=== PATIENT | male | born 1980 | race Two or more races ===

== ENCOUNTER 2024-11-08 10:44 | Emergency (ER) | payer MEDICAID, SELFPAY ==
[2024-11-08 10:45] VITALS: BMI 40.6
[2024-11-08 11:03] VITALS: BP 148/95; PULSE 107; RESP 22; TEMP 37.1; O2SAT 95; BMI 43.9
--- NOTE | 2024-11-08 11:06 | XR_ITS ---
Examination: CT brain head without contrast. 2-D sagittal coronal reconstructions Date and time of exam:November 08, 2024 1113 hours INDICATIONS: High blood pressure with headaches dizziness today CTDI: vol (mGy):57 DLP: (mGycm):1247 Technique: Multiple CT axial sections of the brain have been obtained, 5 mm slice thickness. Contrast has not been administered. 2-D sagittal, coronal reconstructions have been obtained Low dose protocols were performed. One or more of the following dose reduction techniques were used; automated exposure control, adjustment of the mA and/or KV according to patient size, use of iterative reconstruction technique. Findings: No significant ventricular enlargement. Intra-axial or extra-axial hemorrhage density is not seen. No mass effect or midline shift Basal cisterns are not remarkable. Fourth ventricle is midline. Cranial vault intact. Significant chronic pansinusitis, most severe ethmoid and maxillary antral air cells Impression: Negative for acute hemorrhage, mass effect or midline shift Advise clinical correlation follow-up accordingly
--- NOTE | 2024-11-08 11:06 | EKG_ITS ---
[facility] Test Date: 2024-11-08 Pat Name: SAMANTHA SCHRADER Department: Room: - Gender: Male [employer]: : 1980 Requested By: Morales Davis (AMY) Order Number: [id number] Reading MD: Morales Davis (AMY) Measurements Intervals [place] Rate: 102 P: 42 RI: 149 QRS: 61 QRSD: 98 T: 32 QT: 336 QTc: 440 Interpretive Statements SINUS TACHYCARDIA ABNORMAL RHYTHM ECG Compared to ECG 06/06/2023 19:52:41 No significant changes /store/S0/[id number].pdf
--- NOTE | 2024-11-08 11:06 | XR_ITS ---
Examination: PA lateral chest 2 views TECHNIQUE: Upright PA lateral chest 2 views Exam date and time: November 08, 2024 1135 hours Comparison June 06, 2023 INDICATIONS: Chest pain shortness of breath beginning today. FINDINGS: Subtle opacity in the perihilar basilar regions Normal heart size Reduced inspiratory effort Moderate osteopenia IMPRESSION: Subtle interstitial parenchymal disease, differential would include pulmonary fibrosis Consider elective high resolution CT chest without contrast follow-up
--- NOTE | 2024-11-08 11:07 | PD.EDRME ---
Rapid Medical Screening Exam RME Arrival date/time: 11/08/24 10:44 44-year-old male presents the emergency department today for complaints of headache, dizziness, hypertension Chief Complaint: General Adult/Misc Complain Vital signs: Vital Signs Temperature 98.8 F 11/08/24 11:03 Pulse Rate 107 H 11/08/24 11:03 Respiratory Rate 22 H 11/08/24 11:03 Blood Pressure 148/95 H 11/08/24 11:03 Pulse Oximetry (%) 95 11/08/24 11:03 Oxygen Delivery Method Room Air 11/08/24 11:03
[2024-11-08 11:36] LABS: Basophils # (Auto) 0.1 Thou/mm3 (0.0-0.2); Basophils % (Auto) 1 % (0-2.5); Eosinophils # (Auto) 0.4 Thou/mm3 (0.0-0.5); Eosinophils % (Auto) 5 % (0-10); Hematocrit 43.9 % (41.0-53.0); Hemoglobin 14.8 g/dL (13.5-16.0); Immature Granulocytes % (Auto) 0 % (0-0); Immature Granulocytes Auto 0.04 Thou/mm3 (0.00-0.00); Lymphocytes # (Auto) 2.3 Thou/mm3 (1.0-4.8); Lymphocytes % (Auto) 26 % (10-50); Mean Corpuscular HGB Conc 33.7 g/dl (31.0-37.0); Mean Corpuscular Hemoglobin 29.6 pg (25.0-35.0); Mean Corpuscular Volume 88 fL (80-100); Monocytes # (Auto) 0.7 Thou/mm3 (0.0-0.8); Monocytes % (Auto) 8 % (0-12); Neutrophils # (Auto) 5.5 Thou/mm3 (1.8-7.7); Neutrophils % (Auto) 61 % (37-80); Nucleated Red Blood Cell % 0 /100 WBC (0); Platelet Count 347 Thou/mm3 (140-440); RDW Standard Deviation 43.8 fL (35.1-43.9); White Blood Count 9.1 Thou/mm3 (3.8-10.6)
[2024-11-08 11:58] LABS: Alanine Aminotransferase 175 U/L (10-49); Albumin, Serum 4.9 gm/dL (3.5-5.0); Albumin/Globulin Ratio 1.7 (1.2-2.2); Alkaline Phosphatase 113 U/L (46-116); Anion Gap 11 (7-16); Aspartate Amino Transferase 154 U/L (0-34); BUN/Creatinine Ratio 7 Ratio (12-20); Bilirubin,Total 1.1 mg/dL (0.3-1.2); Blood Urea Nitrogen 8 mg/dL (9-23); Calcium 9.6 mg/dL (8.3-10.6); Calcium (Corrected) 9.6 mg/dL (8.5-10.1); Carbon Dioxide 25.5 mMol/L (20.0-31.0); Chloride 105 mMol/L (98-107); Creatinine (Component) 1.1 mg/dL (0.6-1.3); Globulin 2.9 gm/dL (2.3-3.5); Glucose 123 mg/dL (74-106); Osmolality,Calculated 280 (275-295); Sodium 141 mMol/L (136-145); Total Protein 7.8 gm/dL (5.7-8.2); Troponin I < 0.002 ng/mL (0.0-0.045); eGFR > 60 See Note
[2024-11-08 12:03] LABS: B-Type Natriuretic Peptide < 20 pg/mL (0-100)
[2024-11-08 12:56] LABS: Amphetamine/Methamp Scrn,U Negative (Negative); Barbiturate Screen,Urine Negative (Negative); Benzodiazepines Screen,Urine Negative (Negative); Benzoylecgonine Screen, Ur Negative (Negative); Fentanyl Screen,Urine Negative (Negative); Opiate Screen,Urine Negative (Negative); THC Screen,Urine Negative (Negative)
--- NOTE | 2024-11-08 15:12 | PD.EDADULT ---
ED General RME/HPI General Chief complaint: General Adult/Misc Complain Stated complaint: HIGH BP 174/115 (NOT NORMAL), SHAKY, SOB Time Seen by Provider: 11/08/24 15:01 Arrival date/time: 11/08/24 10:44 CC: Hypertension HPI patient presents to the ER very anxious, after finding out significant problems in his immediate family, the patient is tearful, and concerned that he has high blood pressure patient denies any significant headache that does not go away, nausea vomiting chest pain shortness of breath or difficulty breathing. RME / HPI RME / HPI narrative: 11/08/24 10:44 44-year-old male presents the emergency department today for complaints of headache, dizziness, hypertension Related Data Home Medications ?Medication ?Instructions ?Recorded ?Confirmed albuterol sulfate 90 mcg/actuation 2 puff inhalation Q4HR PRN 06/06/23 06/06/23 aerosol inhaler Shortness Of Breath atorvastatin 40 mg tablet 40 mg PO DAILY 06/06/23 06/06/23 budesonide-formoterol HFA 160 2 inh inhalation BID 06/06/23 06/06/23 mcg-4.5 mcg/actuation aerosol inhaler (Symbicort) cetirizine 10 mg tablet 10 mg PO DAILY 06/06/23 06/06/23 rivaroxaban 20 mg tablet (Xarelto) 20 mg PO DAILY 06/06/23 06/06/23 Previous Rx's ?Medication ?Instructions ?Recorded ibuprofen 600 mg tablet 600 mg PO Q8H PRN fever or pain 12/15/23 #20 tabs Allergies Allergy/AdvReac Type Severity Reaction Status Date / Time No Known Allergies Allergy Verified 11/08/24 10:48 Review of Systems Review of Systems Narrative Review of Systems: GEN: No fever, no chills, no weight loss EYES: No discharge, no visual changes, no pain HEENT: No ear pain, no congestion, no sore throat PULM: No shortness of breath, no cough, no congestion CV: No chest pain, no dyspnea on exertion, no palpitations GI: No nausea, no vomiting, no diarrhea, no pain, no constipation : No frequency, no urgency, no dysuria MUSC/SKEL: No joint pain, no back pain SKIN: No rash PSYCH: No hallucinations, no depression HEME/LYMPH: No easy bleeding or bruising tendencies NEURO: No weakness, no headache Past Medical History Past Medical History CARDIAC: Positive Hypercholesterolemia and Deep Vein Thrombosis (Pulmonary Embolism); Negative Cardiac Disorders or Congestive Heart Failure RESPIRATORY: Positive Asthma; Negative Chronic Obstructive Pulmonary Disease (COPD) GENITOURINARY: Negative Renal Disease ENDOCRINE: Negative Endocrine Disorders, Diabetes Mellitus Type 1 or Diabetes Mellitus Type 2 HEMATOLOGIC: Negative Sickle Cell Disease Family History FAMILY HISTORY: Negative Family Cardiac Disorders Surgical History SURGICAL: Positive Nose Surgery (nasal polyps) Social History SMOKING STATUS: Never smoker SUBSTANCE USE: does not use 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 Exam Narrative Physical exam: [General: Obese, anxious, but not in any acute distress Head normocephalic HEENT: Within acceptable limits Neck is supple nontender Chest equal chest rise nontender to palpation Respiratory: Clear to auscultation no wheezes crackles or rubs CV: Rate rhythm is regular, tachycardia, no murmurs rubs or clicks Abdomen is distended secondary to body habitus soft nontender no masses positive bowel sounds all 4 quadrants Back: No CVA tenderness no spinous process tenderness from cervical spine thoracic and lumbar spine Skin: Intact no petechiae rash induration ulceration or crepitus Extremities: Moving all extremity against resistance cap refill less than 2 seconds neurosensory intact Neuro: Awake alert oriented x3 Glascow coma 15 no focal deficits] Course Quality Measures none Orders Category Date Time Status EKG (ED ONLY) *Do not use* NOW Care 11/08/24 11:[address] head/brain wo con Stat Exams 11/08/24 11:06 Completed EKG (ED Only) Stat Exams 11/08/24 11:06 Draft XR chest 2V Stat Exams 11/08/24 11:06 Completed B-Type Natriuretic Peptide Stat Lab 11/08/24 11:28 Completed CBC Stat Lab 11/08/24 11:28 Completed Comprehensive Metabolic Panel Stat Lab 11/08/24 11:28 Completed Drug Screen,Urine Stat Lab 11/08/24 12:15 Completed Troponin I Stat Lab 11/08/24 11:28 Completed Vital Signs Vital signs: Vital Signs Temperature 98.8 F 11/08/24 11:03 Pulse Rate 107 H 11/08/24 11:03 Respiratory Rate 22 H 11/08/24 11:03 Blood Pressure 148/95 H 11/08/24 11:03 Pulse Oximetry (%) 95 11/08/24 11:03 Oxygen Delivery Method Room Air 11/08/24 11:03 [facility] Patient data External records reviewed:: [facility] previous records Clinical information provided by:: patient Social determinants that could affect healthcare access:: none Patient has the following chronic illnesses:: Hypertension pulmonary emboli on Eliquis hyperlipidemia. How is presenting disease/condition affected by chronic disease/condition?: uneffected by Evaluation data The following diagnostics were reviewed and interpreted by me:: lab results, radiology exam(s) and EKG tracing(s) Lab and/or radiology exams considered but not ordered:: EKG performed at 1119 shows a ventricular rate of 102 NV interval 149 QRS of 98 QCT of 395 sinus tachycardia. CBC she has no acute leukocytosis anemia thrombocytopenia CMP shows no significant electrolyte imbalances renal impairment transaminitis or T. bili elevation. BNP is less than 20 troponin is negative Urine opiates is negative CT of the head is negative as interpreted by me Interpretation Summary: Patient is highly anxious and we encouraged him to try and relax and reach out to family members to help him with his situation but there is no medical reason for any further intervention. Medications Medications considered but not ordered:: None Medication administrations:: 9 Consultations Consultation(s) initiated? (list below): No Diagnosis Differential Diagnosis ED Complaint MDM: ACS [place] pneumonia hypertension hypertensive urgency Most likely diagnosis given after review of the tests above:: Hypertension anxiety Admission Indicated Admission indicated?: not indicated Explain why admission is indicated or not indicated:: Stable for discharge Admission Request Was there a request for admission?: No Disposition Plan Disposition Plan: Discharge Discharge Attestation Discharge Attestation: The patient and all family members were given an opportunity to ask questions and understood the discharge instructions. Discharge instructions specifically effects, indications for sooner follow up or return to the emergency department, and the expected course of current diagnosis. Patient condition: Stable Medical Decision Making Differential Diagnosis Differential Diagnosis: ACS [place] pneumonia hypertension hypertensive urgency Lab Data 11/08/24 11:28 11/08/24 11:28 Labs: Lab Results 11/08/24 11/08/24 Range/Units 11:28 12:15 WBC 9.1 (3.8-10.6) Thou/mm3 RBC 5.00 (4.50-5.90) Miln/mm3 Hgb 14.8 (13.5-16.0) g/dL Hct 43.9 (41.0-53.0) % MCV 88 (80-100) fL MCH 29.6 (25.0-35.0) pg MCHC 33.7 (31.0-37.0) g/dl RDW Std Deviation 43.8 (35.1-43.9) fL Plt Count 347 (140-440) Thou/mm3 Neut % (Auto) 61 (37-80) % Lymph % (Auto) 26 (10-50) % [place] % (Auto) 8 (0-12) % Eos % (Auto) 5 (0-10) % Baso % (Auto) 1 (0-2.5) % Neut # (Auto) 5.5 (1.8-7.7) Thou/mm3 Lymph # (Auto) 2.3 (1.0-4.8) Thou/mm3 [place] # (Auto) 0.7 (0.0-0.8) Thou/mm3 Eos # (Auto) 0.4 (0.0-0.5) Thou/mm3 Baso # (Auto) 0.1 (0.0-0.2) Thou/mm3 Immature Gran # (Auto) 0.04 H (0.00-0.00) Thou/mm3 Absolute Nucleated RBC 0.00 (0.00-0.00) Thou/mm3 Immature Gran % 0 (0-0) % Nucleated RBC % 0 (0) /100 WBC Sodium 141 (136-145) mMol/L Potassium 4.0 (3.4-5.1) mMol/L Chloride 105 (98-107) mMol/L Carbon Dioxide 25.5 (20.0-31.0) mMol/L Anion Gap 11 (7-16) BUN 8 L (9-23) mg/dL Creatinine 1.1 (0.6-1.3) mg/dL Estim Creat Clear Calc 125.0 (>60) mL/min eGFR > 60 (60 - ) See Note BUN/Creatinine Ratio 7 L (12-20) Ratio Glucose 123 H (74-106) mg/dL Calculated Osmolality 280 (275-295) Calcium 9.6 (8.3-10.6) mg/dL Corrected Calcium 9.6 (8.5-10.1) mg/dL Total Bilirubin 1.1 (0.3-1.2) mg/dL AST 154 H (0-34) U/L ALT 175 H (10-49) U/L Alkaline Phosphatase 113 (46-116) U/L Troponin I < 0.002 (0.0-0.045) ng/mL B-Natriuretic Peptide < 20 (0-100) pg/mL Total Protein 7.8 (5.7-8.2) gm/dL Albumin 4.9 (3.5-5.0) gm/dL Globulin 2.9 (2.3-3.5) gm/dL Albumin/Globulin Ratio 1.7 (1.2-2.2) Urine Opiates Screen Negative (Negative) Urine Fentanyl Screen Negative (Negative) Ur Barbiturates Screen Negative (Negative) U Amphetamin/Meth Scrn Negative (Negative) U Benzodiazepines Scrn Negative (Negative) U Cocaine Metab Screen Negative (Negative) U Marijuana (THC) Screen Negative (Negative) Discharge Plan Plan Patient Disposition: HOME (Self Care) Patient condition on transfer: Stable Prescriptions/Referrals Prescriptions/Med Rec: No Action atorvastatin 40 mg tablet 40 mg PO DAILY Patient Comments: TAKE 1 TABLET BY MOUTH EVERY DAY cetirizine 10 mg tablet 10 mg PO DAILY Patient Comments: TAKE 1 TABLET BY MOUTH EVERY DAY albuterol sulfate 90 mcg/actuation HFA aerosol inhaler 2 puff INHALATION Q4HR PRN (Reason: Shortness Of Breath) Patient Comments: INHALE 2 PUFFS EVERY 4 HOURS NEEDED budesonide-formoterol [Symbicort] 160-4.5 mcg/actuation HFA aerosol inhaler 2 inh INHALATION BID Patient Comments: TAKE 2 PUFFS BY MOUTH TWICE A DAY Xarelto 20 mg tablet 20 mg PO DAILY Patient Comments: TAKE 1 TABLET BY MOUTH EVERY DAY ibuprofen 600 mg tablet 600 mg PO Q8H PRN (Reason: fever or pain) Qty: 20 0RF Referrals: Rosa Tamayo PA-C [Primary Care Provider] - In 1 week Problem List Clinical Impression: Anxiety, Elevated blood pressure reading Patient/Caregiver Discharge Instructions Education Materials: ED Anxiety Reaction Print Language: Samoan Stand Alone Forms: Kayy Award Info., Work/School Release, Patient Portal Info Letter EDY/GWEN Supervising Physician EDY/GWEN Supervising Physician: Nathan Preston ENP
== END 2024-11-08 15:34 | disposition home or self-care (01) ==
PROVIDERS: Nurse Practitioner Primary Care; Emergency Provider Family Medicine; PCP Physician Assistant
DX: F41.9 Anxiety disorder, unspecified (principal); I10 Essential (primary) hypertension; R51.9 Headache, unspecified; R42 Dizziness and giddiness; R07.9 Chest pain, unspecified; R06.02 Shortness of breath; R00.0 Tachycardia, unspecified
CPT/HCPCS: 36415; 70450; 71046; 80053; 80307; 83880; 84484; 85025; 93005; 99284